=== PATIENT | female | born 1995 | race Two or more races ===

== ENCOUNTER 2020-05-29 21:33 | Emergency (ER) | payer OTHER ==
[~2020-05-29] VITALS: Ht 157.5 cm; Wt 68.2 kg
[2020-05-29 23:00] VITALS: BP 101/58
== END 2020-05-29 23:16 | disposition home or self-care (01) ==
LOC: EMS 21:33
DX: S00.81XA Abrasion of other part of head, initial encounter (principal); W21.01XA Struck by football, initial encounter; Y93.89 Activity, other specified; Y92.89 Other specified places as the place of occurrence of the external cause; Y99.8 Other external cause status
CPT/HCPCS: Z7502